=== PATIENT | female | born 1970 ===

== ENCOUNTER 2018-03-11 15:42 | Emergency (ER) | payer SELFPAY ==
[2018-03-11 15:42] VITALS: BMI 26.9
[2018-03-11] MEDS ORDERED: Sodium Chloride 0.9% 1,000 ML IV SCH (16:00)
[2018-03-11 16:05] LABS: BASO # 0.03 K/mm3 (0.0-2.0); BASO % 0.3 % (0.0-3.0); EOS # 0.1 (0.0-0.7); EOS % 0.6 % (1.5-5.0); GRAN # 7.9 (1.4-6.5); GRAN % 78.1 % (50.0-68.0); HEMOGLOBIN 14.8 g/dL (12.0-16.0); LYMPH # 1.8 (1.2-3.4); LYMPH % 17.9 % (22.0-35.0); MEAN CELL VOLUME 90.7 fl (80.0-105.0); MEAN CORPUSCULAR HEMOGLOBIN 31.4 pg (25.0-35.0); MEAN CORPUSCULAR HGB CONC 34.6 g/dl (31.0-37.0); MEAN PLATELET VOLUME 10.6 fl (7.0-11.0); MONO # 0.3 (0.1-0.6); MONO % 3.1 % (1.0-6.0); RBC 4.72 10^6/uL (3.5-6.1); RED CELL DISTRIBUTION WIDTH 12.5 % (11.5-14.5); WHITE BLOOD COUNT 10.1 10^3/ul (4.5-11.0)
--- NOTE | 2018-03-11 16:18 | CT ---
PROCEDURE: CT HEAD WITHOUT CONTRAST. HISTORY: Code Stroke COMPARISON: None available. TECHNIQUE: Axial computed tomography images were obtained through the head/brain without intravenous contrast. Radiation dose: Total exam DLP = 943.23mGy-cm. This CT exam was performed using one or more of the following dose reduction techniques: Automated exposure control, adjustment of the mA and/or kV according to patient size, and/or use of iterative reconstruction technique. FINDINGS: HEMORRHAGE: No intracranial hemorrhage. BRAIN: No evidence of large acute infarct. No obvious parenchymal nor extra-axial mass or collection seen on this noncontrast study. Note that the possibility of a small hyperacute infarct cannot be completely excluded. Clinical correlation recommended. VENTRICLES: No obstructive hydrocephalus. CALVARIUM: Unremarkable. PARANASAL SINUSES: Unremarkable as visualized. No significant inflammatory changes. MASTOID AIR CELLS: Unremarkable as visualized. No inflammatory changes. OTHER FINDINGS: None. IMPRESSION: No evidence of acute intracranial hemorrhage. No evidence of large acute infarct. Note that the possibility of a small hyperacute infarct cannot be excluded and if there is any concern, followup MRI with diffusion imaging recommended provided that there are no contraindications to MRI in this patient. These findings discussed with Dr. Wade at approximately 4:10 p.m. with written down and read back verification.
[2018-03-11 16:19] LABS: INR 1.09 (0.93-1.08); PARTIAL THROMBOPLASTIN TIME 33.9 Seconds (25.1-36.5); PROTHROMBIN TIME 12.5 SECONDS (9.4-12.5)
[2018-03-11 16:20] LABS: ALB/GLOB RATIO 1.3 (1.1-1.8); ALBUMIN 4.7 g/dL (3.0-4.8); ALT/SGPT 68 U/L (7-56); AST/SGOT 55 U/L (14-36); BLOOD UREA NITROGEN 16 mg/dL (7-21); CALCIUM 9.9 mg/dL (8.4-10.5); GFR AFRICAN-AMERICAN > 60; GFR NON-AFRICAN AMERICAN > 60; HDL CHOLESTEROL 52 mg/dL (29-60)
[2018-03-11 16:25] VITALS: RESP 18
[2018-03-11 16:31] LABS: LDL CHOLESTEROL 84 mg/dL (0-129); TROPONIN I < 0.01 ng/mL
--- NOTE | 2018-03-11 16:41 | ED PDOC ---
Arrival/HPI - General Historian: Patient - History of Present Illness Time/Duration: Prior to Arrival Symptom Onset: Sudden <Les Arrington - Last Filed: 03/11/18 17:56> - History of Present Illness Symptom Course: Unchanged Activities at Onset: Rest Context: Home <Cassuis Wade - Last Filed: 03/11/18 20:10> - General Chief Complaint: Weakness/Neurological Deficit Time Seen by Provider: 03/11/18 15:48 - History of Present Illness Narrative History of Present Illness (Text): 03/11/18 16:44 Patient is a 47 yo F with PMH PUD Depression, Anxiety, and multiple TIA presents to ED with numbness of her tongue that started around 11:50 am. Patient states that she had similar symptoms when she had TIA in the past and was afraid she may be having another. On exam, patient was found to have a left facial droop, which patient states is new. Patient also complains of posterior OLIVAS. Patient denies any other focal deficits, CP, SOB, n/v/d, abdominal pain, fever, chills, or dizziness. PMD: Dina (Les Arrington) Past Medical History - Provider Review Nursing Documentation Reviewed: Yes - Tetanus Immunization Tetanus Immunization: Unknown - Cardiac Hx Cardiac Disorders: Yes Hx Hypertension: Yes - Pulmonary Hx Respiratory Disorders: No - Neurological Hx Neurological Disorder: Yes Hx Transient Ischemic Attacks (TIA): Yes (x2) - HEENT Hx HEENT Disorder: No - Renal Hx Renal Disorder: No - Endocrine/Metabolic Hx Endocrine Disorders: No - Hematological/Oncological Hx Blood Disorders: No - Integumentary Hx Dermatological Disorder: No - Musculoskeletal/Rheumatological Hx Musculoskeletal Disorders: No - Gastrointestinal Hx Gastrointestinal Disorders: Yes Other/Comment: PUD. - Genitourinary/Gynecological Hx Genitourinary Disorders: Yes Other/Comment: PID - Psychiatric Hx Psychophysiologic Disorder: Yes Hx Anxiety: Yes Hx Depression: Yes Hx Substance Use: No - Suicidal Assessment Feels Threatened In Home Enviroment: No <Les Arrington - Last Filed: 03/11/18 17:56> - Travel History Have you recently traveled outside [place] w/in the past 3 mons?: No - Past History Past History: Non-Contributing - Infectious Disease Hx of Infectious Diseases: None - Reproductive Currently : Unknown <Cassius Wade - Last Filed: 03/11/18 20:10> Family/Social History - Physician Review Nursing Documentation Reviewed: Yes Family/Social History: No Known Family HX Smoking Status: Never Smoked Hx Alcohol Use: No Hx Substance Use: No <Les Arrington - Last Filed: 03/11/18 17:56> Hx Substance Use Treatment: No <Cassius Wade - Last Filed: 03/11/18 20:10> Allergies/Home Meds <Les Arrington - Last Filed: 03/11/18 17:56> <Cassius Wade - Last Filed: 03/11/18 20:10> Allergies/Adverse Reactions: Allergies No Known Allergies Allergy (Unverified 03/11/18 15:44) Home Medications: Home Meds Medication Instructions Recorded Confirmed No Known Home Med 03/11/18 03/11/18 Review of Systems - Physician Review All systems were reviewed & negative as marked: Yes - Review of Systems Constitutional: Normal Eyes: Normal ENT: Other (tongue numbness) Respiratory: Normal Cardiovascular: Normal Gastrointestinal: Normal Genitourinary Female: Normal Musculoskeletal: Normal Skin: Normal Neurological: Normal Endocrine: Normal Hemo/Lymphatic: Normal Psychiatric: Normal <Les Arrington - Last Filed: 03/11/18 17:56> Physical Exam Temperature: Afebrile Blood Pressure: Normal Pulse: Regular Respiratory Rate: Normal Appearance: Positive for: Non-Toxic Pain Distress: None Mental Status: Positive for: Alert and Oriented X 3 Finger Stick Blood Glucose: 105 - Systems Exam Head: Present: Atraumatic, Normocephalic Pupils: Present: PERRL Extroacular Muscles: Present: EOMI Conjunctiva: Present: Normal Mouth: Present: Other (left sided droop) Neck: Present: Normal Range of Motion Respiratory/Chest: Present: Clear to Auscultation, Good Air Exchange. No: Respiratory Distress, Accessory Muscle Use Cardiovascular: Present: Regular Rate and Rhythm, Normal S1, S2. No: Murmurs Abdomen: No: Tenderness, Distention, Peritoneal Signs Back: Present: Normal Inspection Upper Extremity: Present: Normal Inspection. No: Cyanosis, Edema Lower Extremity: Present: Normal Inspection. No: Edema Neurological: Present: GCS=15, Speech Normal, Motor Func Grossly Intact, Normal Sensory Function, Other (left sided facial droop, forehead wrinkling equal bilaterally) Skin: Present: Warm, Dry, Normal Color. No: Rashes Psychiatric: Present: Alert, Oriented x 3, Normal Insight, Normal Concentration <Les Arrington - Last Filed: 03/11/18 17:56> Blood Pressure: Hypertensive <Cassius Wade - Last Filed: 03/11/18 20:10> Vital Signs Temp Pulse Resp BP Pulse Ox 03/11/18 17:04 98 F 03/11/18 16:23 98.0 F 75 18 147/85 98 Medical Decision Making <Les Arrington - Last Filed: 03/11/18 17:56> Re-evaluation Time: 17:00 Reassessment Condition: Unchanged - Critical Care Critical Care Minutes: 45 minutes Critical Care Time: Excluding Proc Time - Lab Interpretations I have reviewed the lab results: Yes Interpretation: Abnormal lab values (elevated LFTs) - RAD Interpretation Correctional Casework Specialist: Radiologist - EKG Interpretation Interpreted by ED Physician: Yes Type: 12 lead EKG <Cassius Wade - Last Filed: 03/11/18 20:10> ED Course and Treatment: 03/11/18 15:50 47 yo F presents to ED with left sided facial droop and tongue numbness. Plan: - Code stroke activated - Labs - Head CT - CTA head/neck - EKG - HgbA1c - Lipid panel - Troponin - Coags - EKG - CXR - Reassess and disposition 03/11/18 17:[address] Williamson, who states patient is not a candidate for tPA. Requests ASA, plavix, CTA head/neck, echo with bubble study, and hypercoagulability workup. Head CT Impression: No evidence of acute intracranial hemorrhage. No evidence of large acute infarct. Note that the possibility of a small hyperacute infarct cannot be excluded and if there is any concern, follow up MRI with diffusion imaging recommended provided that there are no contraindications to MRI in this patient. CTA head/neck Impression: normal CT angiography of the neck CXR reviewed and shows no active disease. EKG reviewed shows rate of 84, sinus rhythm occasional PVC, prolonged QT. 03/11/18 17:40 On reassessment, facial droop improved. Patient ok for PO medications. Patient discussed with Dr. Bush, who agrees with plan and accepts patient under hospitalist service. Admit to telemetry. (Les Arrington) I performed the hx and physical exam of the patient and discussed their mgt with the RESIDENT. I reviewed the RESIDENT's NOTE and agree with the assessment and plan of care. 03/11/18 15:50 Code Stroke activated. 03/11/2018 15:[address] Williamson, who suggests due to patient's low NIH stroke scale and atypical symptoms, she is likely NOT a candidate for tPA and requests for MRI if possible. Will continue to monitor patient. I reached out to MRI dept and they had already left the hospital; UNABLE to obtain an MRI currently 03/11/18 1630 pt remained unchanged re-evaluation noted + left facial droop/tongue numbness, left facial numbness?, NIH stroke scale ~ 1 vital signs remained stable/unchanged Dr Williamson is made aware of Ct head results as well as pt's continued neurologic assessment results, Dr Williamson suggests admitting patient for further neurology workup/evaluation and will see patient in the hospital when she arrives pt remained not a candidate for tPA currently 1700 pt is made aware of her medical results pt agrees with admission Resident Dr Arrington, spoke to hospitalists orchestra conductor, made aware, agrees with admission (Cassius Wade) - Critical Care Narrative Critical Care (Text): 03/11/18 19:26 critical care time: 45min, excluding procedure time, excluding time teaching residents/students/mid-level providers; including initial eval/diagnosis, diagnostic interpretation, re-eval, consultations, final disposition (Cassius Wade) - Lab Interpretations Lab Results: 03/11/18 15:30 03/11/18 15:30 Lab Results 03/11/18 16:40: Urine Color Light yellow, Urine Appearance Clear, Urine pH 7.5, Ur Specific [place] 1.010, Urine Protein Negative, Urine Glucose (UA) Negative, Urine Ketones Trace H, Urine Blood Negative, Urine Nitrate Negative, Urine Bilirubin Negative, Urine Urobilinogen 1.0 H, Ur Leukocyte Esterase Negative 03/11/18 15:30: Sodium 144, Potassium 3.7, Chloride 101, Carbon Dioxide 29, Anion Gap 18, BUN 16, Creatinine 0.6 L, Est GFR ( Amer) > 60, Est GFR ( Non-Af Amer) > 60, Random Glucose 114 H, Calcium 9.9, Total Bilirubin 0.7, AST 55 H, ALT 68 H, Alkaline Phosphatase 80, Troponin I < 0.01, Total Protein 8.3, Albumin 4.7, Globulin 3.6, Albumin/Globulin Ratio 1.3, Triglycerides 142, Cholesterol 183, LDL Cholesterol Direct 84, HDL Cholesterol 52 03/11/18 15:30: PT 12.5, INR 1.09 H, APTT 33.9 03/11/18 15:30: WBC 10.1, RBC 4.72, Hgb 14.8, Hct 42.8, MCV 90.7, MCH 31.4, MCHC 34.6, RDW 12.5, Plt Count 269, MPV 10.6, Gran % 78.1 H, Lymph % (Auto) 17.9 L, [place] % (Auto) 3.1, Eos % (Auto) 0.6 L, Baso % (Auto) 0.3, Gran # 7.90 H , Lymph # (Auto) 1.8, [place] # (Auto) 0.3, Eos # (Auto) 0.1, Baso # (Auto) 0.03 - RAD Interpretation Narrative RAD Interpretations (Text): 03/11/18 19:27 HISTORY: Code Stroke COMPARISON: Comparison chest 07/17/2015. FINDINGS: LUNGS: No active pulmonary disease. Bilateral nipple shadow artifact both lateral lower lung fontana PLEURA: No significant pleural effusion identified, no pneumothorax apparent. CARDIOVASCULAR: Normal. OSSEOUS STRUCTURES: No significant abnormalities. VISUALIZED UPPER ABDOMEN: Normal. OTHER FINDINGS: None. IMPRESSION: No active disease. PROCEDURE: CT HEAD WITHOUT CONTRAST. HISTORY: Code Stroke COMPARISON: None available. TECHNIQUE: Axial computed tomography images were obtained through the head/brain without intravenous contrast. Radiation dose: Total exam DLP = 943.23mGy-cm. This CT exam was performed using one or more of the following dose reduction techniques: Automated exposure control, adjustment of the mA and/or kV according to patient size, and/or use of iterative reconstruction technique. FINDINGS: HEMORRHAGE: No intracranial hemorrhage. BRAIN: No evidence of large acute infarct. No obvious parenchymal nor extra-axial mass or collection seen on this noncontrast study. Note that the possibility of a small hyperacute infarct cannot be completely excluded. Clinical correlation recommended. VENTRICLES: No obstructive hydrocephalus. CALVARIUM: Unremarkable. PARANASAL SINUSES: Unremarkable as visualized. No significant inflammatory changes. MASTOID AIR CELLS: Unremarkable as visualized. No inflammatory changes. OTHER FINDINGS: None. IMPRESSION: No evidence of acute intracranial hemorrhage. No evidence of large acute infarct. Note that the possibility of a small hyperacute infarct cannot be excluded and if there is any concern, followup MRI with diffusion imaging recommended provided that there are no contraindications to MRI in this patient. These findings discussed with Dr. Wade at approximately 4:10 p.m. with written down and read back verification. PROCEDURE: CT Angiography of the neck and brain HISTORY: Left facial droop, left tongue numbness/tingling COMPARISON: None available. TECHNIQUE: Contiguous axial images of the neck and brain were obtained from the level of the in standard fashion during the arteriographic phase of enhancement. Coronal and sagittal reformats or also generated. IV contrast dose: Radiation Dose - DLP: 598.26 mGy-cm This CT exam was performed using one or more of the following dose reduction techniques: Automated exposure control, adjustment of the mA and/or kV according to patient size, and/or use of iterative reconstruction technique. FINDINGS: RIGHT CAROTID ARTERIES: Common Carotid Artery: Normal. Carotid Bifurcation: Normal. Internal Carotid Artery:Normal. External Carotid Artery (proximal branches): Normal. LEFT CAROTID ARTERIES: Common Carotid Artery: Normal. Carotid Bifurcation: Normal. Internal Carotid Artery:Normal. External Carotid Artery (proximal branches): Normal. VERTEBRAL ARTERIES: Right Vertebral Artery: Normal. Left Vertebral Artery: Normal. OTHER FINDINGS: None. IMPRESSION: Normal CT Angiography of the neck. (Cassius Wade) Radiology Orders: 03/11/18 15:49 CTA HEAD/NECK CODE STROKE [CT] Stat HEAD W/O (CODE STROKE) [CT] Stat CHEST PORTABLE [RAD] Stat - Medication Orders Current Medication Orders: Sodium Chloride (Sodium Chloride 0.9%) 1,000 mls @ 100 mls/hr IV .Q10H CIPRIANO Last Admin: 03/11/18 16:53 Dose: 100 mls/hr Discontinued Medications Aspirin (Aspirin) 325 mg PO STAT STA Stop: 03/11/18 15:50 Last Admin: 03/11/18 16:47 Dose: Not Given Non-Admin Reason: NPO Aspirin (Aspirin Supp) 300 mg RC STAT STA Stop: 03/11/18 16:53 Last Admin: 03/11/18 17:04 Dose: 300 mg MAR Pain/Vitals Document 03/11/18 17:04 GMI (Rec: 03/11/18 17:05 GMI [id number]) Pain Reassessment Is This A Pain ReAssessment? No Sleep Is patient sleeping during reassessment? No Presence of Pain Presence of Pain No Vitals Temperature (97.6 F-99.6 F) 98 F Clopidogrel Bisulfate (Plavix) 300 mg PO STAT STA Stop: 03/11/18 17:04 Last Admin: 03/11/18 17:39 Dose: 300 mg NIHSS Scale ([place]) Time Performed: 15:40 - How Severe is the Stoke Baseline Level of Consciousness: 0=Alert LOC to Questions: 0=Both comments correct LOC to commands: 0=Obeys both correctly Best Gaze: 0=Normal Visual: 0=No visual loss Facial: 1=Minor asymmetry Motor Arm - Left: 0=No drift Motor Arm - Right: 0=No drift Motor Leg - Left: 0=No drift Motor Leg - Right: 0=No drift Limb Ataxia: 0=Absent Sensory: 0=Normal Best Language: 0=No aphasia Dysarthia: 0=Normal articulation Extinction & Inattention (Neglect): 0=Normal, no object Score: 1 Risk Level: Minor Stroke Risk <Les Arrington - Last Filed: 03/11/18 17:56> Disposition/Present on Arrival - Present on Arrival Any Indicators Present on Arrival: No History of DVT/PE: No History of Uncontrolled Diabetes: No Urinary Catheter: No History of Decub. Ulcer: No History Surgical Site Infection Following: None - Disposition Have Diagnosis and Disposition been Completed?: Yes Disposition Time: 17:57 Patient Plan: Admission, Telemetry <Les Arrington - Last Filed: 03/11/18 17:56> <Cassius Wade - Last Filed: 03/11/18 20:10> - Disposition Diagnosis: Facial droop, TIA (transient ischemic attack) Disposition: HOSPITALIZED Condition: STABLE Print Language: GABONESE
--- NOTE | 2018-03-11 16:47 | CT ---
PROCEDURE: CT Angiography of the neck and brain HISTORY: Left facial droop, left tongue numbness/tingling COMPARISON: None available. TECHNIQUE: Contiguous axial images of the neck and brain were obtained from the level of the in standard fashion during the arteriographic phase of enhancement. Coronal and sagittal reformats or also generated. IV contrast dose: Radiation Dose - DLP: 598.26 mGy-cm This CT exam was performed using one or more of the following dose reduction techniques: Automated exposure control, adjustment of the mA and/or kV according to patient size, and/or use of iterative reconstruction technique. FINDINGS: RIGHT CAROTID ARTERIES: Common Carotid Artery: Normal. Carotid Bifurcation: Normal. Internal Carotid Artery:Normal. External Carotid Artery (proximal branches): Normal. LEFT CAROTID ARTERIES: Common Carotid Artery: Normal. Carotid Bifurcation: Normal. Internal Carotid Artery:Normal. External Carotid Artery (proximal branches): Normal. VERTEBRAL ARTERIES: Right Vertebral Artery: Normal. Left Vertebral Artery: Normal. OTHER FINDINGS: None. IMPRESSION: Normal CT Angiography of the neck.
[2018-03-11 16:59] LABS: PH,URINE 7.5 (4.7-8.0); URINE APPEARANCE CLEAR (CLEAR); URINE BILIRUBIN NEGATIVE (NEGATIVE); URINE BLOOD NEGATIVE (NEGATIVE); URINE COLOR LIGHT YELLOW (YELLOW); URINE GLUCOSE (UA) NEGATIVE (NEGATIVE); URINE LEUKOCYTE ESTERASE NEGATIVE Leu/uL (NEGATIVE); URINE PROTEIN NEGATIVE mg/dL (<30 mg/dL)
[2018-03-11 17:06] VITALS: TEMP 98
--- NOTE | 2018-03-11 17:26 | RAD ---
HISTORY: Code Stroke COMPARISON: Comparison chest 07/17/2015. FINDINGS: LUNGS: No active pulmonary disease. Bilateral nipple shadow artifact both lateral lower lung fontana PLEURA: No significant pleural effusion identified, no pneumothorax apparent. CARDIOVASCULAR: Normal. OSSEOUS STRUCTURES: No significant abnormalities. VISUALIZED UPPER ABDOMEN: Normal. OTHER FINDINGS: None. IMPRESSION: No active disease.
--- NOTE | 2018-03-11 20:36 | CP.PCM.HP ---
<Radhika Morales - Last Filed: 03/12/18 02:55> History of Present Illness - History of Present Illness History of Present Illness: History and Physical - Hospitalist Service CC: "My speech was slurred" HPI: Patient is a 47 year old female with past medical history of Peptic Ulcer Disease, Anxiety/Depression, TIA in the past presents to [facility] [place] speech. Patient states that she was experiencing slurred speech that started at approximately 11am this morning. She states that this has happened to her before in the past, 2 years ago, and she was diagnosed with a TIA. Code Stroke was called in the ER. At the time of the interview, slurred speech and facial droop had resolved. At this time, patient offers no other complaints. She denies numbness/tingling, weakness of extremities, headaches, dizziness, cp , palpitations, sob, abdominal pain, N/V, fevers/chills, urinary symptoms, changes in bowel habits. Patient denies any recent travel or sick contacts. She reports that she has been stressed lately. She was living in an apartment but is now staying at a hotel with her , daughter, and grandchildren. ED course: Aspirin 300mg RC once, Plavix 300mg once PMD: Dr Arroyo Allergies: NKDA Medications: Ativan 2mg PO BID prn Medical History: PUD, Anxiety/Depression, TIA Surgical History: Denies Social History: Denies alcohol, tobacco, drug use; Family History: Maternal Grandmother - CVA, Mother - healthy, Father - Present on Admission - Present on Admission Any Indicators Present on Admission: No Past Patient History - Infectious Disease Hx of Infectious Diseases: None - Tetanus Immunizations Tetanus Immunization: Unknown - Past Medical History & Family History Past Medical History?: Yes - Past Social History Smoking Status: Never Smoked - CARDIAC Hx Cardiac Disorders: Yes Hx Hypertension: Yes - PULMONARY Hx Respiratory Disorders: No - NEUROLOGICAL Hx Neurological Disorder: Yes Hx Transient Ischemic Attacks (TIA): Yes (x2) - HEENT Hx HEENT Problems: No - RENAL Hx Chronic Kidney Disease: No - ENDOCRINE/METABOLIC Hx Endocrine Disorders: No - HEMATOLOGICAL/ONCOLOGICAL Hx Blood Disorders: No - INTEGUMENTARY Hx Dermatological Problems: No - MUSCULOSKELETAL/RHEUMATOLOGICAL Hx Musculoskeletal Disorders: No - GASTROINTESTINAL Hx Gastrointestinal Disorders: Yes Other/Comment: PUD. - GENITOURINARY/GYNECOLOGICAL Hx Genitourinary Disorders: Yes Other/Comment: PID - PSYCHIATRIC Hx Psychophysiologic Disorder: Yes Hx Anxiety: Yes Hx Depression: Yes Hx Substance Use: No - SURGICAL HISTORY Hx Surgeries: No Meds Allergies/Adverse Reactions: Allergies Allergy/AdvReac Type Severity Reaction Status Date / Time No Known Allergies Allergy Unverified 03/11/18 15:44 Physical Exam - Constitutional Appears: Well, No Acute Distress - Head Exam Head Exam: ATRAUMATIC, NORMAL INSPECTION, NORMOCEPHALIC - Eye Exam Eye Exam: EOMI, Normal appearance Pupil Exam: NORMAL ACCOMODATION - ENT Exam ENT Exam: Mucous Membranes Moist - Neck Exam Neck exam: Positive for: Full Rom - Respiratory Exam Respiratory Exam: Clear to Auscultation Bilateral, NORMAL BREATHING PATTERN. absent: Rales, Rhonchi, Wheezes - Cardiovascular Exam Cardiovascular Exam: REGULAR RHYTHM, +S1, +S2 - GI/Abdominal Exam GI & Abdominal Exam: Normal Bowel Sounds, Soft. absent: Rigid, Tenderness - Extremities Exam Extremities exam: Positive for: full ROM, normal capillary refill, normal inspection, pedal pulses present. Negative for: calf tenderness - Back Exam Back exam: NORMAL INSPECTION - Neurological Exam Neurological exam: Alert, CN II-XII Intact, Oriented x3 - Expanded Neurological Exam Expanded Patient oriented to: person, place, time Speech: Fluid Speech Cranial nerves: EOM's Intact: Normal, Facial Sensation: Normal, Tongue Deviation : Normal Cerebellar Function: Finger to Nose: Normal Upper motor neuron: Babinski Sign: Normal Neuro motor strength exam: Left Upper Extremity: 5, Right Upper Extremity: 5, Left Lower Extremity: 5, Right Lower Extremity: 5 Coma Scale Motor Response: OBEYS COMMANDS - Psychiatric Exam Psychiatric exam: Normal Affect, Normal Mood - Skin Skin Exam: Dry, Normal Color, Warm Results - Vital Signs Recent Vital Signs: Last Vital Signs Temp 98 F 03/11/18 17:04 Pulse 75 03/11/18 16:23 Resp 18 03/11/18 16:23 BP 147/85 03/11/18 16:23 Pulse Ox 98 03/11/18 16:23 - Labs Result Diagrams: 03/11/18 15:30 03/11/18 15:30 Assessment & Plan - Assessment and Plan (Free Text) Assessment: A/P: Patient is a 47 year old female with past medical history of PUD, depression/anxiety, TIA presents to [facility] [place] with slurred speech. Code stroke was called in the ED. Case was discussed with Dr Williamson, patient was not a candidate for tPA. TIA vs CVA -Stable, afebrile -Will admit to telemetry -CT head: No evidence of acute intracranial hemorrhage, no evidence of large acute infarct (see full report) -CTA head/neck: Normal CT Angiography of the neck -Continue Aspirin 81mg PO daily -F/U lipid panel, HgA1C -F/U hypercoaguable workup -F/U echocardiogram with bubble study -Neurology on consult, help appreciated -Seizure precautions, aspiration precautions -Neuro checks Q4H for 24 hours -Physical Therapy evaluation ordered Transaminitis -AST/ALT 55/68 -History of Hep C (unclear if treated vs untreated) -Denies any alcohol use or recent Tylenol use -Avoid hepatotoxic agents -Will continue to monitor GI/DVT ppx: -Protonix 40mg IVP daily -SCDS Plan discussed with Dr Joyce Morales DO PGY-1 NIHSS Scale ([place]) Time Performed: 20:30 - How Severe is the Stoke Baseline Level of Consciousness: 0=Alert LOC to Questions: 0=Both comments correct LOC to commands: 0=Obeys both correctly Best Gaze: 0=Normal Visual: 0=No visual loss Facial: 0=Normal Motor Arm - Left: 0=No drift Motor Arm - Right: 0=No drift Motor Leg - Left: 0=No drift Motor Leg - Right: 0=No drift Limb Ataxia: 0=Absent Sensory: 0=Normal Best Language: 0=No aphasia Dysarthia: 0=Normal articulation Extinction & Inattention (Neglect): 0=Normal, no object Score: 0 Risk Level: No Stroke Risk - Notes Notes: Patient is not a candidate for tPA as her symptoms have resolved completely. <Marzena Cook - Last Filed: 03/12/18 07:10> Results - Vital Signs Recent Vital Signs: Last Vital Signs Temp 98 F 03/11/18 17:04 Pulse 78 03/11/18 20:50 Resp 18 03/11/18 20:50 BP 135/78 03/11/18 20:50 Pulse Ox 99 03/11/18 20:50 - Labs Result Diagrams: 03/11/18 15:30 03/11/18 15:30 Labs: Laboratory Results - last 24 hr 03/11/18 03/11/18 03/11/18 15:30 15:30 15:30 WBC 10.1 RBC 4.72 Hgb 14.8 Hct 42.8 MCV 90.7 MCH 31.4 MCHC 34.6 RDW 12.5 Plt Count 269 MPV 10.6 Gran % 78.1 H Lymph % (Auto) 17.9 L [place] % (Auto) 3.1 Eos % (Auto) 0.6 L Baso % (Auto) 0.3 Gran # 7.90 H Lymph # (Auto) 1.8 [place] # (Auto) 0.3 Eos # (Auto) 0.1 Baso # (Auto) 0.03 PT 12.5 INR 1.09 H APTT 33.9 Sodium 144 Potassium 3.7 Chloride 101 Carbon Dioxide 29 Anion Gap 18 BUN 16 Creatinine 0.6 L Est GFR ( Amer) > 60 Est GFR (Non-Af Amer) > 60 Random Glucose 114 H Calcium 9.9 Total Bilirubin 0.7 AST 55 H ALT 68 H Alkaline Phosphatase 80 Troponin I < 0.01 Total Protein 8.3 Albumin 4.7 Globulin 3.6 Albumin/Globulin Ratio 1.3 Triglycerides 142 Cholesterol 183 LDL Cholesterol Direct 84 HDL Cholesterol 52 Urine Color Urine Appearance Urine pH Ur Specific [place] Urine Protein Urine Glucose (UA) Urine Ketones Urine Blood Urine Nitrate Urine Bilirubin Urine Urobilinogen Ur Leukocyte Esterase 03/11/18 16:40 WBC RBC Hgb Hct MCV MCH MCHC RDW Plt Count MPV Gran % Lymph % (Auto) [place] % (Auto) Eos % (Auto) Baso % (Auto) Gran # Lymph # (Auto) [place] # (Auto) Eos # (Auto) Baso # (Auto) PT INR APTT Sodium Potassium Chloride Carbon Dioxide Anion Gap BUN Creatinine Est GFR ( Amer) Est GFR (Non-Af Amer) Random Glucose Calcium Total Bilirubin AST ALT Alkaline Phosphatase Troponin I Total Protein Albumin Globulin Albumin/Globulin Ratio Triglycerides Cholesterol LDL Cholesterol Direct HDL Cholesterol Urine Color Light yellow Urine Appearance Clear Urine pH 7.5 Ur Specific [place] 1.010 Urine Protein Negative Urine Glucose (UA) Negative Urine Ketones Trace H Urine Blood Negative Urine Nitrate Negative Urine Bilirubin Negative Urine Urobilinogen 1.0 H Ur Leukocyte Esterase Negative Attending/Attestation - Attestation I have personally seen and examined this patient.: Yes I have fully participated in the care of the patient.: Yes I have reviewed all pertinent clinical information: Yes Notes (Text): 03/12/18 07:01 Patient seen,case discussed with Resident IMP:TIA, resolved PLAN:as ordered 03/12/18 07:09
[2018-03-11 21:02] VITALS: BP 135/78; PULSE 78; O2SAT 99
--- NOTE | 2018-03-12 01:00 | CP.PCM.DIS ---
<Radhika Morales - Last Filed: 03/12/18 03:00> Provider - Provider Date of Admission: 03/11/18 Consults: Neurology: Clay Time Spent in preparation of Discharge (in minutes): 15 Hospital Course - Lab Results Lab Results: Most Recent Lab Values WBC 10.1 10^3/ul (4.5-11.0) 03/11/18 15:30 RBC 4.72 10^6/uL (3.5-6.1) 03/11/18 15:30 Hgb 14.8 g/dL (12.0-16.0) 03/11/18 15:30 Hct 42.8 % (36.0-48.0) 03/11/18 15:30 MCV 90.7 fl (80.0-105.0) 03/11/18 15:30 MCH 31.4 pg (25.0-35.0) 03/11/18 15:30 MCHC 34.6 g/dl (31.0-37.0) 03/11/18 15:30 RDW 12.5 % (11.5-14.5) 03/11/18 15:30 Plt Count 269 10^3/uL (120.0-450.0) 03/11/18 15:30 MPV 10.6 fl (7.0-11.0) 03/11/18 15:30 Gran % 78.1 % (50.0-68.0) H 03/11/18 15:30 Lymph % (Auto) 17.9 % (22.0-35.0) L 03/11/18 15:30 [place] % (Auto) 3.1 % (1.0-6.0) 03/11/18 15:30 Eos % (Auto) 0.6 % (1.5-5.0) L 03/11/18 15:30 Baso % (Auto) 0.3 % (0.0-3.0) 03/11/18 15:30 Gran # 7.90 (1.4-6.5) H 03/11/18 15:30 Lymph # (Auto) 1.8 (1.2-3.4) 03/11/18 15:30 [place] # (Auto) 0.3 (0.1-0.6) 03/11/18 15:30 Eos # (Auto) 0.1 (0.0-0.7) 03/11/18 15:30 Baso # (Auto) 0.03 K/mm3 (0.0-2.0) 03/11/18 15:30 PT 12.5 SECONDS (9.4-12.5) 03/11/18 15:30 INR 1.09 (0.93-1.08) H 03/11/18 15:30 APTT 33.9 Seconds (25.1-36.5) 03/11/18 15:30 Sodium 144 mmol/L (132-148) 03/11/18 15:30 Potassium 3.7 mmol/L (3.6-5.0) 03/11/18 15:30 Chloride 101 mmol/L (98-107) 03/11/18 15:30 Carbon Dioxide 29 mmol/L (21-33) 03/11/18 15:30 Anion Gap 18 (10-20) 03/11/18 15:30 BUN 16 mg/dL (7-21) 03/11/18 15:30 Creatinine 0.6 mg/dl (0.7-1.2) L 03/11/18 15:30 Est GFR ( Amer) > 60 03/11/18 15:30 Est GFR (Non-Af Amer) > 60 03/11/18 15:30 Random Glucose 114 mg/dL (70-110) H 03/11/18 15:30 Calcium 9.9 mg/dL (8.4-10.5) 03/11/18 15:30 Total Bilirubin 0.7 mg/dL (0.2-1.3) 03/11/18 15:30 AST 55 U/L (14-36) H 03/11/18 15:30 ALT 68 U/L (7-56) H 03/11/18 15:30 Alkaline Phosphatase 80 U/L (38-126) 03/11/18 15:30 Troponin I < 0.01 ng/mL 03/11/18 15:30 Total Protein 8.3 g/dL (5.8-8.3) 03/11/18 15:30 Albumin 4.7 g/dL (3.0-4.8) 03/11/18 15:30 Globulin 3.6 gm/dL 03/11/18 15:30 Albumin/Globulin Ratio 1.3 (1.1-1.8) 03/11/18 15:30 Triglycerides 142 mg/dL (35-160) 03/11/18 15:30 Cholesterol 183 mg/dL (130-200) 03/11/18 15:30 LDL Cholesterol Direct 84 mg/dL (0-129) 03/11/18 15:30 HDL Cholesterol 52 mg/dL (29-60) 03/11/18 15:30 Urine Color Light yellow (YELLOW) 03/11/18 16:40 Urine Appearance Clear (CLEAR) 03/11/18 16:40 Urine pH 7.5 (4.7-8.0) 03/11/18 16:40 Ur Specific [place] 1.010 (1.005-1.035) 03/11/18 16:40 Urine Protein Negative mg/dL (<30 mg/dL) 03/11/18 16:40 Urine Glucose (UA) Negative mg/dL (NEGATIVE) 03/11/18 16:40 Urine Ketones Trace mg/dL (NEGATIVE) H 03/11/18 16:40 Urine Blood Negative (NEGATIVE) 03/11/18 16:40 Urine Nitrate Negative (NEGATIVE) 03/11/18 16:40 Urine Bilirubin Negative (NEGATIVE) 03/11/18 16:40 Urine Urobilinogen 1.0 E.U./dL (<1 E.U./dL) H 03/11/18 16:40 Ur Leukocyte Esterase Negative [place]/uL (NEGATIVE) 03/11/18 16:40 - Hospital Course Hospital Course: HPI: Patient is a 47 year old female with past medical history of Peptic Ulcer Disease, Anxiety/Depression, TIA in the past [place] [facility] [place]. Patient states that she was experiencing slurred speech that started at approximately 11am this morning. She states that this has happened to her before in the past, 2 years ago, and she was diagnosed with a TIA. Code Stroke was called in the ER. At the time of the interview, slurred speech and facial droop had resolved. At this time, patient offers no other complaints. She denies numbness/tingling, headaches, dizziness, cp, palpitations, sob, abdominal pain, N/V, fevers/chills, urinary symptoms, changes in bowel habits. Patient denies any recent travel or sick contacts. She reports that she has been stressed lately. She was living in an apartment but is now staying at a hotel with her , daughter, and grandchildren. Hospital Course: CODE STROKE was called in the ED. CT head was negative for acute hemorrhage or infarct (see full report). CTA head/neck was negative. Patient was given Aspirin 300mg RC and Plavix 300mg PO in the emergency dept. Neurology was notified. Patient was not a candidate for tPA. Patient was admitted for TIA vs CVA workup. During the interview, patient states that she wants to sign out against medical advice. The benefits of staying were explained to the patient that included stabilizing of condition, stroke workup, evaluation by neurology. The major risks reasonably expected from refusing the services were also explained. This included stroke, heart attack, seizure, falls , worsening of condition, coma/. Patient accepts these risks and signed the AMA form at 20:45. Advised the patient to return to the ER if needed. Impression: TIA resolved Discharge Medications: None Discharge Exam - Additional Findings Additional findings: - Constitutional Appears: Well, No Acute Distress - Head Exam Head Exam: ATRAUMATIC, NORMAL INSPECTION, NORMOCEPHALIC - Eye Exam Eye Exam: EOMI, Normal appearance Pupil Exam: NORMAL ACCOMODATION - ENT Exam ENT Exam: Mucous Membranes Moist - Neck Exam Neck exam: Positive for: Full Rom - Respiratory Exam Respiratory Exam: Clear to Auscultation Bilateral, NORMAL BREATHING PATTERN. absent: Rales, Rhonchi, Wheezes - Cardiovascular Exam Cardiovascular Exam: REGULAR RHYTHM, +S1, +S2 - GI/Abdominal Exam GI & Abdominal Exam: Normal Bowel Sounds, Soft. absent: Rigid, Tenderness - Extremities Exam Extremities exam: Positive for: full ROM, normal capillary refill, normal inspection, pedal pulses present. Negative for: calf tenderness - Back Exam Back exam: NORMAL INSPECTION - Neurological Exam Neurological exam: Alert, CN II-XII Intact, Oriented x3 - Expanded Neurological Exam Expanded Patient oriented to: person, place, time Speech: Fluid Speech Cranial nerves: EOM's Intact: Normal, Facial Sensation: Normal, Tongue Deviation : Normal Cerebellar Function: Finger to Nose: Normal Upper motor neuron: Babinski Sign: Normal Neuro motor strength exam: Left Upper Extremity: 5, Right Upper Extremity: 5, Left Lower Extremity: 5, Right Lower Extremity: 5 Coma Scale Motor Response: OBEYS COMMANDS - Psychiatric Exam Psychiatric exam: Normal Affect, Normal Mood - Skin Skin Exam: Dry, Normal Color, Warm Discharge Plan - Follow Up Plan Condition: FAIR Disposition: AGAINST MEDICAL ADVICE <Marzena Cook - Last Filed: 03/12/18 07:21> Hospital Course - Lab Results Lab Results: Most Recent Lab Values WBC 10.1 10^3/ul (4.5-11.0) 03/11/18 15:30 RBC 4.72 10^6/uL (3.5-6.1) 03/11/18 15:30 Hgb 14.8 g/dL (12.0-16.0) 03/11/18 15:30 Hct 42.8 % (36.0-48.0) 03/11/18 15:30 MCV 90.7 fl (80.0-105.0) 03/11/18 15:30 MCH 31.4 pg (25.0-35.0) 03/11/18 15:30 MCHC 34.6 g/dl (31.0-37.0) 03/11/18 15:30 RDW 12.5 % (11.5-14.5) 03/11/18 15:30 Plt Count 269 10^3/uL (120.0-450.0) 03/11/18 15:30 MPV 10.6 fl (7.0-11.0) 03/11/18 15:30 Gran % 78.1 % (50.0-68.0) H 03/11/18 15:30 Lymph % (Auto) 17.9 % (22.0-35.0) L 03/11/18 15:30 [place] % (Auto) 3.1 % (1.0-6.0) 03/11/18 15:30 Eos % (Auto) 0.6 % (1.5-5.0) L 03/11/18 15:30 Baso % (Auto) 0.3 % (0.0-3.0) 03/11/18 15:30 Gran # 7.90 (1.4-6.5) H 03/11/18 15:30 Lymph # (Auto) 1.8 (1.2-3.4) 03/11/18 15:30 [place] # (Auto) 0.3 (0.1-0.6) 03/11/18 15:30 Eos # (Auto) 0.1 (0.0-0.7) 03/11/18 15:30 Baso # (Auto) 0.03 K/mm3 (0.0-2.0) 03/11/18 15:30 PT 12.5 SECONDS (9.4-12.5) 03/11/18 15:30 INR 1.09 (0.93-1.08) H 03/11/18 15:30 APTT 33.9 Seconds (25.1-36.5) 03/11/18 15:30 Sodium 144 mmol/L (132-148) 03/11/18 15:30 Potassium 3.7 mmol/L (3.6-5.0) 03/11/18 15:30 Chloride 101 mmol/L (98-107) 03/11/18 15:30 Carbon Dioxide 29 mmol/L (21-33) 03/11/18 15:30 Anion Gap 18 (10-20) 03/11/18 15:30 BUN 16 mg/dL (7-21) 03/11/18 15:30 Creatinine 0.6 mg/dl (0.7-1.2) L 03/11/18 15:30 Est GFR ( Amer) > 60 03/11/18 15:30 Est GFR (Non-Af Amer) > 60 03/11/18 15:30 Random Glucose 114 mg/dL (70-110) H 03/11/18 15:30 Calcium 9.9 mg/dL (8.4-10.5) 03/11/18 15:30 Total Bilirubin 0.7 mg/dL (0.2-1.3) 03/11/18 15:30 AST 55 U/L (14-36) H 03/11/18 15:30 ALT 68 U/L (7-56) H 03/11/18 15:30 Alkaline Phosphatase 80 U/L (38-126) 03/11/18 15:30 Troponin I < 0.01 ng/mL 03/11/18 15:30 Total Protein 8.3 g/dL (5.8-8.3) 03/11/18 15:30 Albumin 4.7 g/dL (3.0-4.8) 03/11/18 15:30 Globulin 3.6 gm/dL 03/11/18 15:30 Albumin/Globulin Ratio 1.3 (1.1-1.8) 03/11/18 15:30 Triglycerides 142 mg/dL (35-160) 03/11/18 15:30 Cholesterol 183 mg/dL (130-200) 03/11/18 15:30 LDL Cholesterol Direct 84 mg/dL (0-129) 03/11/18 15:30 HDL Cholesterol 52 mg/dL (29-60) 03/11/18 15:30 Urine Color Light yellow (YELLOW) 03/11/18 16:40 Urine Appearance Clear (CLEAR) 03/11/18 16:40 Urine pH 7.5 (4.7-8.0) 03/11/18 16:40 Ur Specific [place] 1.010 (1.005-1.035) 03/11/18 16:40 Urine Protein Negative mg/dL (<30 mg/dL) 03/11/18 16:40 Urine Glucose (UA) Negative mg/dL (NEGATIVE) 03/11/18 16:40 Urine Ketones Trace mg/dL (NEGATIVE) H 03/11/18 16:40 Urine Blood Negative (NEGATIVE) 03/11/18 16:40 Urine Nitrate Negative (NEGATIVE) 03/11/18 16:40 Urine Bilirubin Negative (NEGATIVE) 03/11/18 16:40 Urine Urobilinogen 1.0 E.U./dL (<1 E.U./dL) H 03/11/18 16:40 Ur Leukocyte Esterase Negative [place]/uL (NEGATIVE) 03/11/18 16:40 Attending/Attestation - Attestation I have personally seen and examined this patient.: Yes I have fully participated in the care of the patient.: Yes I have reviewed all pertinent clinical information, including history, physical exam and plan: Yes Notes (Text): 03/12/18 07:12 IMP:Pt was admitted with diagnosis of TIA which has resolved. PLAN:Pt has decided to leave AMA even after we have explained to her about the huge risks she is taking in leaving AMA. She was advised to return to the ER if needed. Time spent with patient: 15 mins
[2018-03-14 14:35] LABS: CARDIOLIPIN AB (IGA) <11 APL (<=11)
== END 2018-03-11 20:50 | disposition left against medical advice (07) ==
LOC: ED 15:42 → ERH 17:34 → UNDOADMIN 17:34 → ERH 18:52 → ED 20:50
DX: G45.9 Transient cerebral ischemic attack, unspecified (principal); R29.810 Facial weakness; I10 Essential (primary) hypertension; Z82.3 Family history of stroke
CPT/HCPCS: 70450; 70496; 70498; 71045; 80053; 80061; 81003; 81240; 81241; 83036; 83090; 84484; 85025; 85300; 85303; 85306; 85610; 85730; 86147; 87086; 99285; J7030; Q9967

== ENCOUNTER 2018-03-23 07:31 | Emergency (ER) | payer SELFPAY ==
[2018-03-23 07:32] VITALS: BMI 26.9
[2018-03-23 07:53] VITALS: BP 153/90; PULSE 58; RESP 18; TEMP 97.2; O2SAT 100
[2018-03-23 09:42] LABS: URINE BILIRUBIN NEGATIVE (NEGATIVE); URINE BLOOD NEGATIVE (NEGATIVE); URINE GLUCOSE (UA) NEGATIVE (NEGATIVE); URINE LEUKOCYTE ESTERASE NEGATIVE Leu/uL (NEGATIVE); URINE PROTEIN TRACE mg/dL (<30 mg/dL)
[2018-03-23 09:43] LABS: BASO # 0.03 K/mm3 (0.0-2.0); BASO % 0.3 % (0.0-3.0); EOS # 0.1 (0.0-0.7); EOS % 0.4 % (1.5-5.0); GRAN # 9.65 (1.4-6.5); GRAN % 81.5 % (50.0-68.0); HEMOGLOBIN 14.4 g/dL (12.0-16.0); LYMPH # 1.8 (1.2-3.4); MEAN CELL VOLUME 91.2 fl (80.0-105.0); MEAN PLATELET VOLUME 10.9 fl (7.0-11.0); MONO # 0.3 (0.1-0.6); MONO % 2.8 % (1.0-6.0); RBC 4.64 10^6/uL (3.5-6.1); RED CELL DISTRIBUTION WIDTH 12.8 % (11.5-14.5); URINE APPEARANCE CLEAR (CLEAR); URINE COLOR YELLOW (YELLOW); WHITE BLOOD COUNT 11.8 10^3/ul (4.5-11.0)
[2018-03-23 09:48] LABS: HCG,QUALITATIVE URINE NEGATIVE (NEGATIVE)
[2018-03-23 09:50] LABS: URINE BACTERIA MANY (NEG); URINE RBC 0 - 2 /hpf (0-2); URINE WBC 0 - 2 /hpf (0-6)
[2018-03-23 09:58] LABS: ALB/GLOB RATIO 1.4 (1.1-1.8); ALBUMIN 4.6 g/dL (3.0-4.8); ALT/SGPT 52 U/L (7-56); AST/SGOT 55 U/L (14-36); BLOOD UREA NITROGEN 18 mg/dL (7-21); CALCIUM 9.4 mg/dL (8.4-10.5); GFR AFRICAN-AMERICAN > 60; GFR NON-AFRICAN AMERICAN > 60
--- NOTE | 2018-03-23 10:11 | ED PDOC ---
Arrival/HPI - General Chief Complaint: GI Problem Time Seen by Provider: 03/23/18 08:37 Historian: Patient - History of Present Illness Narrative History of Present Illness (Text): 03/23/18 09:08 A 47 year old female, whose past medical history includes PUD Depression, Anxiety, and multiple TIA, presents to the emergency department complaining of lower abdominal pain and lower back pain with associated vomiting since yesterday. Patient states pain starts in pelvic region and radiates to lower back. She states she has no prior history of similar symptoms in the past. Patient denies any fever, diarrhea, congestion, dysuria, abnormal vaginal discharge, or any other complaints at this time. PMD: Dr. Krause Time/Duration: 24 hours Symptom Onset: Sudden Symptom Course: Unchanged Past Medical History - Provider Review Nursing Documentation Reviewed: Yes - Past History Past History: Non-Contributing - Infectious Disease Hx of Infectious Diseases: None - Tetanus Immunization Tetanus Immunization: Unknown - Reproductive Menopause: No - Cardiac Hx Cardiac Disorders: Yes Hx Hypertension: Yes - Pulmonary Hx Respiratory Disorders: No - Neurological Hx Neurological Disorder: Yes Hx Transient Ischemic Attacks (TIA): Yes (x2) - HEENT Hx HEENT Disorder: No - Renal Hx Renal Disorder: No - Endocrine/Metabolic Hx Endocrine Disorders: No - Hematological/Oncological Hx Blood Disorders: No - Integumentary Hx Dermatological Disorder: No - Musculoskeletal/Rheumatological Hx Musculoskeletal Disorders: No - Gastrointestinal Hx Gastrointestinal Disorders: Yes Other/Comment: PUD. - Genitourinary/Gynecological Hx Genitourinary Disorders: Yes Other/Comment: PID - Psychiatric Hx Psychophysiologic Disorder: Yes Hx Anxiety: Yes Hx Depression: Yes Hx Substance Use: No - Anesthesia Hx Anesthesia: No - Suicidal Assessment Feels Threatened In Home Enviroment: No Family/Social History - Physician Review Nursing Documentation Reviewed: Yes Family/Social History: No Known Family HX Smoking Status: Never Smoked Hx Alcohol Use: No Hx Substance Use: No Hx Substance Use Treatment: No Allergies/Home Meds Allergies/Adverse Reactions: Allergies No Known Allergies Allergy (Unverified 03/11/18 15:44) Home Medications: Home Meds Medication Instructions Recorded Confirmed No Known Home Med 03/11/18 03/23/18 Review of Systems - Physician Review All systems were reviewed & negative as marked: Yes - Review of Systems Constitutional: absent: Fevers ENT: absent: Sinus Congestion Gastrointestinal: Abdominal Pain (lower region), Vomiting (associated with pain symptoms). absent: Diarrhea Genitourinary Female: absent: Dysuria, Vaginal Discharge Musculoskeletal: Back Pain (lower back pain (according to patient, radiating from pelvic pain).) Physical Exam - Physical Exam Narrative Physical Exam (Text): Gen: VS reviewed, alert, well developed, well nourished, nontoxic, mild distress. ENT: normal pharynx. Eye: EOMI, PERRL. Neck: no JVD, supple, no adenopathy. CV: regular rate, regular rhythm, no rubs, no murmur, no gallops, S1, S2, pulses equal and strong. Pulm: no distress, clear to auscultation, no wheeze, no rhonchi, breath sounds equal, no rales. Abd: mild suprapubic tenderness, no guarding, no rebound, no rigidity, normal bowel sounds. Ext: no edema. Skin: good color, no rash, no cyanosis. Psych: responds appropriately to questions, normal affect. Neuro: oriented x 3, CN2-12 intact grossly, motor intact, sensation intact. Back: questionable bilateral CVA tenderness. Vital Signs Reviewed: Yes Vital Signs Temp Pulse Resp BP Pulse Ox 03/23/18 10:04 58 L 18 153/90 H 100 03/23/18 07:50 97.2 F L 58 L 18 153/90 H 100 03/23/18 07:32 97.2 F L 58 L 18 153/90 H 100 Temperature: Afebrile Blood Pressure: Hypertensive Pulse: Regular Respiratory Rate: Normal Appearance: Positive for: Well-Appearing, Non-Toxic, Comfortable Pain Distress: None Mental Status: Positive for: Alert and Oriented X 3 Medical Decision Making ED Course and Treatment: 03/23/18 09:11 Impression: 47 year old female with lower abdominal pain and lower back pain with associated vomiting. Physical exam shows mild suprapubic tenderness and questionable bilateral CVA tenderness to back. Differential Diagnosis included but are not limited to: Renal Colic. Plan: -- Labs -- Urinalysis -- -- Reassess and disposition Prior Visits: Notes and results from previous visits were reviewed. Patient was last seen in the emergency department on 03/11/2018 for numbness of her tongue. Patient was admitted with diagnosis of: Facial droop, TIA. Progress Notes: 03/23/18 10:00 Patient eloped. 03/23/18 10:39 correction to scribe notes, patient did not elope from the ,patient left without completing treatment 03/23/18 16:32 - Lab Interpretations Lab Results: 03/23/18 09:25 03/23/18 09:25 Lab Results 03/23/18 09:25: Sodium 144, Potassium 3.8, Chloride 105, Carbon Dioxide 27, Anion Gap 16, BUN 18, Creatinine 0.6 L, Est GFR ( Amer) > 60, Est GFR ( Non-Af Amer) > 60, Random Glucose 103, Calcium 9.4, Total Bilirubin 0.7, AST 55 H, ALT 52, Alkaline Phosphatase 92, Total Protein 8.0, Albumin 4.6, Globulin 3.4 , Albumin/Globulin Ratio 1.4 03/23/18 09:25: Urine Color Yellow, Urine Appearance Clear, Urine pH 6.0, Ur Specific Ledger >= 1.030, Urine Protein Trace H, Urine Glucose (UA) Negative, Urine Ketones Negative, Urine Blood Negative, Urine Nitrate Negative, Urine Bilirubin Negative, Urine Urobilinogen 1.0 H, Ur Leukocyte Esterase Negative, Urine RBC 0 - 2, Urine WBC 0 - 2, Ur Epithelial Cells 6 - 8, Urine Bacteria Many , Urine Other Uyeast, Urine HCG, Qual Negative 03/23/18 09:25: WBC 11.8 H, RBC 4.64, Hgb 14.4, Hct 42.3, MCV 91.2, MCH 31.0, MCHC 34.0, RDW 12.8, Plt Count 281, MPV 10.9, Gran % 81.5 H, Lymph % (Auto) 15.0 L, [place] % (Auto) 2.8, Eos % (Auto) 0.4 L, Baso % (Auto) 0.3, Gran # 9.65 H , Lymph # (Auto) 1.8, [place] # (Auto) 0.3, Eos # (Auto) 0.1, Baso # (Auto) 0.03 I have reviewed the lab results: Yes - Scribe Statement The provider has reviewed the documentation as recorded by the Scribe [place] Provider Scribe Attestation: All medical record entries made by the Scribe were at my direction and personally dictated by me. I have reviewed the chart and agree that the record accurately reflects my personal performance of the history, physical exam, medical decision making, and the department course for this patient. I have also personally directed, reviewed, and agree with the discharge instructions and disposition. ' Disposition/Present on Arrival - Present on Arrival Any Indicators Present on Arrival: No History of DVT/PE: No History of Uncontrolled Diabetes: No Urinary Catheter: No History of Decub. Ulcer: No History Surgical Site Infection Following: None - Disposition Have Diagnosis and Disposition been Completed?: Yes Diagnosis: Abdominal pain Disposition: LEFT W/O TREATMENT - ER ONLY Disposition Time: 16:34 Condition: GOOD Forms: [employer] (Turkish)
== END 2018-03-23 10:04 | disposition left against medical advice (07) ==
LOC: ED 07:31
DX: R10.30 Lower abdominal pain, unspecified (principal); I10 Essential (primary) hypertension